=== PATIENT | female | born 2000 | race African-American/Black ===

== ENCOUNTER 2023-06-04 23:06 | Emergency (ER) | payer OTHER, SELFPAY ==
[2023-06-04 23:14] VITALS: BP 152/88; PULSE 98; RESP 18; TEMP 37; O2SAT 98; BMI 28.8
--- NOTE | 2023-06-04 23:17 | DI.RAD.S_ITS ---
PROCEDURE: XR ANKLE LT MIN 3V INDICATIONS: twisted it today TECHNIQUE: 3 views of the ankle were acquired. COMPARISON: None. FINDINGS: Bones: No fractures or dislocations. Ankle mortise is normally aligned. No suspicious bony lesions. Soft tissues: No tibiotalar joint effusion. Achilles tendon appears normal. IMPRESSION: No displaced fracture or significant joint effusion. Dictated by: Brandt Saini M.D. on 06/04/2023 at 23:55 Approved by: Brandt Saini M.D. on 06/04/2023 at 23:55
--- NOTE | 2023-06-05 02:35 | ED.LOWEXIN ---
HPI - Extremity Injury (Lower) General Chief Complaint: Extremity Injury, Lower Stated Complaint: possible left ankle sprain Time Seen by Provider: 06/05/23 02:34 Source: patient Mode of arrival: Ambulatory History of Present Illness HPI Narrative: 22-year-old healthy female with no reported medical issues. Patient states she stepped funny rolled her left ankle and has had pain on the outer portion of the ankle now. She states she has not really tried to walk on it. She states it is a little bit of swelling in pain. Denies any other injuries. No numbness tingling or weakness otherwise. Denies any prior fractures. Denies any daily medications. No prior surgeries. No known drug allergies besides Septra. No tobacco, no recreational drugs. Review of Systems Review of Systems ROS Unobtainable: All systems reviewed & are unremarkable except as noted in HPI and below Patient History Social History Smoking Status: Never smoker Smoking Status: Never smoker Substance Use Type: does not use Exam Narrative Exam Narrative: GENERAL: Alert and oriented x three, well-appearing female in mild distress. HEENT: Head normocephalic, atraumatic, EOMI, pupils reactive, face symmetric, moist mucous membranes NECK: Supple, full range of motion EXTREMITIES: Normal range of motion, no clubbing. Neurovascularly intact. Patient has some mild swelling over the lateral malleoli and just below. No bony tenderness on examination. Patient does have discomfort with inversion. No ecchymosis appreciated. 2+ both dorsalis pedis. Sensation throughout. Cap refill less than 2 seconds in all 5 toes. NEUROLOGICAL: Cranial nerves II through XII grossly intact. Moving all extremities SKIN: Warm, dry, no petechiae, no rashes or lesions. Initial Vital Signs Initial Vital Signs: Vital Signs Temperature 98.6 F 06/04/23 23:14 Pulse Rate 98 H 06/04/23 23:14 Respiratory Rate 18 06/04/23 23:14 Blood Pressure 152/88 H 06/04/23 23:14 Pulse Oximetry 98 06/04/23 23:14 Oxygen Delivery Method Room Air 06/04/23 23:14 Course Orders Ordered: ED Orders 06/04/23 23:17 XR ankle LT min 3V Stat Vital Signs Vital signs: Vital Signs - 8 hr 06/04/23 23:14 06/05/23 02:37 06/05/23 02:55 Temperature 98.6 F 97.1 F L 98 F Pulse Rate 98 H 77 82 Respiratory Rate 18 18 18 Blood Pressure 152/88 H 133/62 132/74 Pulse Oximetry 98 100 98 Oxygen Delivery Method Room Air Room Air Room Air MDM - Extremity Injury (Lower) Imaging Data Extremity x-ray #1: Radiologist's Impression: [address] [address] XRay Report Signed Patient: Tosha Robertson MR#: [id number] : 2000 Acct:[id number] Age/Sex: 22 / F Date of Service: 06/04/23 Loc: ED Accession Number: [id number] ?? Procedure: XR ankle LT min 3V Ordering Provider: Dulce Rodríguez D.O. PROCEDURE:? XR ANKLE LT MIN 3V ? INDICATIONS:? twisted it today ? TECHNIQUE:? 3 views of the ankle were acquired.? ? COMPARISON:? None. ? FINDINGS:? ? Bones:? No fractures or dislocations.? Ankle mortise is normally aligned.? No suspicious bony lesions.? ? Soft tissues:? No tibiotalar joint effusion.? Achilles tendon appears normal.? ? ? IMPRESSION:? No displaced fracture or significant joint effusion. ? Dictated by: Brandt Saini M.D. on 06/04/2023 at 23:55 ? ? Approved by: Brandt Saini M.D. on 06/04/2023 at 23:55?? [facility] Narrative Medical decision making narrative: Healthy 22-year-old female who inverted her ankle causing some swelling and discomfort. No bony tenderness on examination. Patient does have some swelling, x-ray does not show any acute fracture. Patient ambulated into the room prior to being seen. Plan for NSAIDs/Tylenol as needed as needed, weight-bearing as tolerated with RICE. Discussed return precautions and need for follow-up. Discharge Plan Departure Patient Disposition: Home Clinical Impression: Ankle sprain and strain Instructions: DI for Ankle Sprain Activity Restrictions/Additional Instructions: Follow-up your symptoms are are not improving for repeat imaging in the next 7-10 days. You may take Tylenol up to a 1000 mg every 6 hours and/or ibuprofen up to 600 mg every 6 hours as needed for pain. You may weightbear as tolerated. Elevated affected body part to decrease swelling. OK to use ice pack on the affected body part. Use for 15-20 minutes each time, for 5-6x per day. If you develop worsening pain, numbness, tingling, discoloration of the affected body part, either see your doctor for an urgent re-assessment, or return to the Emergency Department. Return to the Emergency Department for any new or worsening symptoms. Referrals: Provider,Clark MEJIA [Primary Care Provider] - Stand Alone Forms: Patient Portal/API, Work Release Note
[2023-06-05 02:37] VITALS: BP 133/62; PULSE 77; RESP 18; TEMP 36.2; O2SAT 100
[2023-06-05 02:55] VITALS: BP 132/74; PULSE 82; RESP 18; TEMP 36.6; O2SAT 98
== END 2023-06-05 02:56 | disposition home or self-care (01) ==
PROVIDERS: Emergency Provider Emergency Medicine
DX: S93.402A Sprain of unspecified ligament of left ankle, initial encounter (principal); S96.912A Strain of unspecified muscle and tendon at ankle and foot level, left foot, initial encounter; X58.XXXA Exposure to other specified factors, initial encounter; Y93.9 Activity, unspecified
CPT/HCPCS: 73610; 99281; 99283